=== PATIENT | female | born 1975 | race Caucasian/White ===

== ENCOUNTER 2023-05-23 09:22 | Emergency (ER) | payer MEDICAID ==
[~2023-05-23] VITALS: Ht 160 cm; Wt 100.9 kg
[2023-05-23 09:35] VITALS: BP 142/83; PULSE 111; RESP 18; TEMP 98.8; O2SAT 98
[2023-05-23 09:58] LABS: Urine Bacteria NONE SEEN /hpf (None Seen); Urine Blood Negative /uL (Negative); Urine Clarity Clear (Clear); Urine Color Yellow (Yellow); Urine Hyaline Cast FEW /lpf (0 - 2); Urine Mucus FEW (None Seen); Urine Protein, UAD TRACE (Negative); Urine Specific Gravity 1.018 (1.001-1.035); Urine WBC 3 /hpf (0 - 5)
[2023-05-23] MEDS ORDERED: CIPR-173 PO (10:25)
[2023-05-23] MEDS ORDERED: IBUP-1456 PO (10:25)
[2023-05-23] MEDS ORDERED: ACETAMINOPHEN 500 MG TAB PO ONE (10:30)
[2023-05-23] MEDS ORDERED: cefTRIAXone SOD 1,000 MG VL IM ONE (10:30)
== END 2023-05-23 10:40 | disposition home or self-care (01) ==
LOC: ER 09:22
DX: N39.0 Urinary tract infection, site not specified (principal); Z88.6 Allergy status to analgesic agent; Z88.2 Allergy status to sulfonamides; Z88.0 Allergy status to penicillin
CPT/HCPCS: 81001; 96372; 99283; J0696